=== PATIENT | female | born 1965 | race Caucasian/White ===

== ENCOUNTER 2016-12-18 16:23 | Emergency (ER) | payer SELFPAY ==
[~2016-12-18 16:23] MED LIST: ANTIVERT25 MG PO; CIPROFLOXACIN500 MG PO; FLEXERIL10 MG PO; FLONASE ALLERG9.9 ML NAS; HYDROCODONE BIT1 T11 PO; LEVOFLOXACIN500 MG PO; MOTRIN800 MG PO; PERCOCET 325 MG1 TA7 PO; PREDNICOT20 MG PO; PREDNISONE10 MG PO; ROBITUSSIN AC 110 ML PO; SYNTHROID0.125 MG PO; TRAMADOL HCL50 MG PO
[2016-12-18 16:47] LABS: BASO # 0.1 10*3/uL (0.0-0.1); BASO % 0.6 % (0.0-1.0); EOS # 0.1 10*3/uL (0.0-0.4); EOS % 0.9 % (1.0-4.0); HEMATOCRIT 45.2 % (37.0-47.0); HEMOGLOBIN 15.4 g/dl (12.0-16.0); LYMPH # 3.1 10*3/uL (1.3-4.4); MEAN CELL VOLUME 90.9 fl (81.0-99.0); MEAN CORPUSCULAR HGB CONC 34.1 g/dl (33.0-37.0); MEAN PLATELET VOLUME 10.6 fl (9.6-12.3); MONO # 0.6 10*3/uL (0.1-1.0); MONO % 6.6 % (3.0-9.0); NEUT # 5.3 10*3/uL (2.3-7.9); NEUT % 57.8 % (47.0-73.0); PLATELET COUNT AUTOMATED 168 10*3/uL (130-400); RED BLOOD COUNT 4.97 10*6/uL (4.10-5.10); RED CELL DISTRI WIDTH 12.5 % (0-14.5); WHITE BLOOD COUNT 9.2 10*3/uL (4.8-10.8)
[2016-12-18 16:56] LABS: ACT PARTIAL THROMBO TIME 25.2 SECONDS (20.8-31.5)
[2016-12-18 17:05] LABS: ALBUMIN 3.8 gm/dl (3.1-4.5); ALKALINE PHOSPHATASE 86 U/L (45-117); BUN 15 mg/dl (7-24); CHLORIDE 107 mmol/L (98-107); CREATININE 0.74 mg/dL (0.55-1.02); MAGNESIUM 2.2 mg/dL (1.5-2.1); POTASSIUM 3.5 mmol/L (3.5-5.1); SGOT/AST 14 IU/L (3-35); SGPT/ALT 15 U/L (12-78); SODIUM 143 mmol/L (136-145); TOTAL PROTEIN 7.1 gm/dL (6.4-8.2)
[2016-12-18 17:07] LABS: TROPONIN I < 0.015 ng/ml (<0.045)
[2016-12-18 17:10] LABS: FREE T4 0.8 ng/dl (0.76-1.46)
[2016-12-18 17:15] LABS: THYROID STIM HORMONE (HS) 5.44 uIU/ml (0.358-4.75)
[2016-12-18] MEDS ORDERED: ANAPROX DS550 MG PO (18:12)
[2016-12-18] MEDS ORDERED: SYNTHROID,LEV175 MCG PO (18:12)
[2016-12-18 18:21] VITALS: BP 147/81
== END 2016-12-18 18:44 | disposition home or self-care (01) ==
LOC: ED 16:23
PROVIDERS: Emergency Medicine; Physician Assistant
DX: M94.0 Chondrocostal junction syndrome [Tietze] (principal); J44.9 Chronic obstructive pulmonary disease, unspecified; I25.10 Atherosclerotic heart disease of native coronary artery without angina pectoris; F17.200 Nicotine dependence, unspecified, uncomplicated; Z88.1 Allergy status to other antibiotic agents

== ENCOUNTER 2018-03-06 09:28 | Inpatient (IN) | payer SELFPAY ==
[~2018-03-06] VITALS: Ht 160 cm; Wt 53.7 kg
--- NOTE | ~2018-03-06 | PR ---
[place], [place] PROGRESS NOTE NAME: WILLARD ARCE UNIT #: [id number] ROOM: 502 DOCTOR: GUERDA MENDOZA BIRTHDATE: [birth year] DOS: 03/08/2018 PULMONOLOGY PROGRESS NOTE SUBJECTIVE: The patient was seen and evaluated today on a general medical floor. The patient reports that her shortness of breath and cough and wheezing are improving significantly from yesterday. The patient denies any chest pain, nausea, vomiting, diarrhea, constipation or any other complaints. OBJECTIVE: VITAL SIGNS: Temperature 98, pulse of 78, respiratory rate 16, blood pressure 143/76. The patient is 98% on 2 liters nasal cannula. GENERAL: The patient is alert and oriented with no signs of distress at this time. HEENT: Head is atraumatic. No masses or lesions. NECK: Supple. CARDIOVASCULAR: Regular rate and rhythm, no murmurs. LUNGS: Mildly decreased breath sounds bilateral. ABDOMEN: Soft, nontender. Bowel sounds present. EXTREMITIES: No erythema or edema. IMPRESSION: 1. The patient has resolving acute exacerbation of chronic obstructive pulmonary disease. 2. Central lobar emphysema with predominance of the villanueva-lobular emphysema. PLAN OF TREATMENT: The patient to be discharged home on tapering prednisone and oral antibiotic and use of long-term Advair inhaler with outpatient followup with Dr. Michel to rule out other causes of her COPD. Mendozarodriguez Black DO [place], [place] PROGRESS NOTE NAME: WILLARD ARCE UNIT #: [id number] ROOM: 502 DOCTOR: GUERDA MENDOZA BIRTHDATE: [birth year] KALE MICHEL MD CM:PNTRANS [phone] MENDOZA GUERDA 03/09/18 0513 interface
--- NOTE | ~2018-03-06 | CON ---
[place], [place] REPORT OF CONSULTATION NAME: WILLARD ARCE UNIT #: [id number] ROOM: 502 DOCTOR: MENDOZA CROFT DO BIRTHDATE: [birth year] DOS: 03/07/2018 PULMONOLOGY CONSULTATION REPORT Consultation is for the hospitalist service. REASON FOR CONSULTATION: Acute exacerbation of chronic obstructive pulmonary disease. HISTORY OF PRESENT ILLNESS: The patient is a 52-year-old female who presented to the ER with complaints of shortness of breath for about 4 days. She reports cough which was productive of a thick white sputum. She notes that her shortness of breath is at rest and with exertional activity making it worse. She denies any chest pain, back pain, nausea, vomiting, diarrhea, or constipation. In the ER, she was noted to be tachypneic with a respiratory rate of 22 and slightly hypoxic with oxygen saturation of 90% on room air and was placed on 4 liters nasal cannula, which caused an improvement in her sats to 96%. She was provided with DuoNeb treatments, IV Solu-Medrol and IV antibiotics and admitted to the floor for further care. PAST MEDICAL HISTORY: Benign paroxysmal positional vertigo, hypothyroidism. PAST SURGICAL HISTORY: History of hysterectomy, appendectomy, cholecystectomy. SOCIAL HISTORY: Does not drink or use illicit drugs, but does smoke around 1 pack per day. FAMILY HISTORY: Father from an IN at age 47. Mother from unknown causes at age 68. ALLERGIES: AZITHROMYCIN. CURRENT MEDICATIONS: Synthroid 175 mcg p.o. daily. REVIEW OF SYSTEMS: GENERAL: The patient reports chills. Denies fevers, weight loss, weight gain. HEENT: Denies vision changes, hearing loss, ear discharge, ear pain, or trouble swallowing. CARDIOVASCULAR: Denies chest pain, palpitations, lower extremity edema or diaphoresis. RESPIRATORY: Reports shortness of breath, cough, wheezing, dyspnea on exertion and sputum production. Denies any hemoptysis or stridor. ABDOMINAL: Reports nausea, vomiting. Denies abdominal pain, diarrhea, constipation, blood or any blood in the stool. GENITOURINARY: Denies any dysuria, hematuria or changes in frequency, urgency. NEUROLOGICAL: Denies lightheadedness, dizziness or confusion. PSYCHIATRIC: Denies depression, anxiety. ENDOCRINE: Denies any heat or cold intolerance. SKIN: Denies any new skin rashes or lesions. [place], [place] REPORT OF CONSULTATION NAME: WILLARD ARCE UNIT #: [id number] ROOM: 502 DOCTOR: MENDOZA CROFT DO BIRTHDATE: [birth year] PHYSICAL EXAMINATION: VITAL SIGNS: Temperature of 97.8, pulse of 106, respiratory rate 20, blood pressure 138/75, pulse ox 98% on 3 liters nasal cannula. GENERAL: Alert, awake, ill-appearing female in mild distress. HEAD: Normocephalic, atraumatic. EYES: PERRLA. SKIN: No lesions, no ulcerations. ENT: No lesions, scars, masses. NECK: Supple, without masses or lesions. HEART: Tachycardia. No gallops, murmurs or rubs. LUNGS: Cough, mild respiratory distress with diminished breath sounds, rhonchi and wheezing bilaterally. ABDOMEN: Soft. Bowel sounds present, nontender. EXTREMITIES: No clubbing, cyanosis, erythema. NEUROLOGIC: Grossly intact without focal neurological deficits. PSYCHIATRIC: Normal mood and affect. SKIN: Warm and dry. No ulcerations or rashes. LABORATORY DATA: CBC showed white blood cell count of 11.9, hemoglobin 14.4, hematocrit of 43.8 and platelets of 153. Coagulation panel within normal limits. BMP revealed hyperglycemia, mildly at 158 and no other acute abnormalities. DIAGNOSTIC IMAGING: Chest x-ray in the ER showed normal AP chest without changes. CT of the chest without contrast showed severe central lobar emphysema without any acute disease. ASSESSMENT: 1. Acute exacerbation of chronic obstructive pulmonary disease. 2. Pneumonitis. 3. Acute respiratory failure with hypoxia. 4. Tobacco abuse. 5. Hypothyroidism. TREATMENT PLAN: The patient will be continued on Solu-Medrol 40 mg q.12h. with DuoNeb every 4 hours as needed for shortness of breath and Levaquin will be provided 500 mg daily. We will continue to monitor the patient and monitor clinical process. Smoking cessation provided to the patient and she was counseled on the risk of continued smoking. Nicotine replacement will be provided as needed for nicotine withdrawals. General medical care per the primary service. Mendoza Croft DO [place], [place] REPORT OF CONSULTATION NAME: WILLARD ARCE UNIT #: [id number] ROOM: 502 DOCTOR: MENDOZA CROFT DO BIRTHDATE: [birth year] KALE MICHEL MD CM:CONSTR:REPORT OF CONSULTATION 1251 03/08/18 0527 interface
--- NOTE | ~2018-03-06 | PR ---
[place], [place] PROGRESS NOTE NAME: WILLARD ARCE UNIT #: [id number] ROOM: 502 DOCTOR: KALE BROWER MD BIRTHDATE: [birth year] DOS: 03/08/2018 PULMONARY PROGRESS NOTE SUBJECTIVE: The patient was independently seen and examined in gzzn-dv-lqpo encounter. History was confirmed. Physical examination was performed. Labs reviewed. Assessment and management of the patient today's note was personally completed. The note done by the medical biller coder was approved. The patient has been noted comfortable at this time, resting on the bed without any acute distress. She has been noted continued improvement of the respiratory symptoms. Shortness of breath and wheezing still noted with a moderate nonproductive cough. OBJECTIVE: VITAL SIGNS: Vital signs of the patient, which has been recorded showed normal temperature, respiratory rate of 16, heart rate of 103, and blood pressure of 143/76. HEENT: On examination, no acute change. NECK: Supple. CARDIOVASCULAR SYSTEM: S1, S2 is audible. LUNGS: The patient was noted without any crackles or wheezing. Breaths are noted mildly decreased bilaterally. ABDOMEN: Soft, nontender. Bowel sounds present. EXTREMITIES: No edema. IMPRESSION: 1. The patient with resolving acute exacerbation of chronic obstructive pulmonary disease, acute tracheobronchitis. 2. Centrilobular emphysema partially with predominance of the panlobular emphysema, rule out alpha-1 antitrypsin deficiency. PLAN OF TREATMENT: The patient could be discharged home on tapering prednisone, oral antibiotic, and use of the Advair. The prescription for the Advair is short-acting bronchodilator. Absolute abstinence tobacco use was advised. Outpatient assessment to rule out alpha-1 antitrypsin deficiency, an appointment to be established in office post-discharge [place], [place] PROGRESS NOTE NAME: WILLARD ARCE UNIT #: [id number] ROOM: 502 DOCTOR: KALE BROWER MD BIRTHDATE: [birth year] KALE MICHEL MD CM:PNTRANS [phone] KALE BAUGH MD 03/08/18 0808 interface
--- NOTE | ~2018-03-06 | CON ---
[place], [place] REPORT OF CONSULTATION NAME: WILLARD ARCE UNIT #: [id number] ROOM: 502 DOCTOR: MARILU BAUGH MDKALE BIRTHDATE: [birth year] DOS: 03/07/2018 PULMONARY CONSULTATION, EVALUATION AND MANAGEMENT CONSULTATION REQUESTED BY: Hospitalist Services. REASON FOR CONSULTATION: For assessment of acute exacerbation of COPD. The patient was independently seen and examined with xlad-zo-enln encounter. History was confirmed. Physical examination was performed. Labs were reviewed. Imaging studies were reviewed. Assessment and management of today's note were personally completed. HISTORY OF PRESENT ILLNESS: This is a 52-year-old female patient who has been getting acute respiratory symptoms, which started after upper airway respiratory symptoms with nasal congestion and drainage. The patient came into the hospital as the patient's symptoms got worse, especially the shortness of breath. She denies symptoms of fever or chills. Denies symptoms of chest pain or hemoptysis. Cough has been noted moderate to severe, which is nonproductive, with tightness in the chest. Remaining system review was done by the medical housekeeper and was approved. PAST MEDICAL HISTORY: Reported as history of hypothyroidism. PAST SURGICAL HISTORY: Reported as: 1. Hysterectomy. 2. Appendectomy. 3. Cholecystectomy. SOCIAL HISTORY: She is , has 2 children, and lives at home. Noted with tobacco use at earlier age, a pack of cigarettes per day, which was actively done until hospitalization. FAMILY HISTORY: Father at the age of 4747 years old with myocardial infarction. Mother at the age of 6868 years old, unknown medical illnesses. MEDICATIONS: From home were listed as use of Synthroid 175 mcg daily. DRUG ALLERGIES: ZITHROMAX. PHYSICAL EXAMINATION: GENERAL: The patient is a 52-year-old female who has been currently noted to be awake and alert, without any acute distress this morning of assessment. Height and weight were recorded by the nursing staff, with a height of 5 feet 3 inches and weight of 160 pounds, BMI 20.9. VITAL SIGNS: Normal temperature since admission, respiratory rate 16-20, heart rate of 93-88, blood pressure 116/60 to 138/78. Pulse oxygen saturation recorded as 93% on 3 liters nasal cannula; at rest on room air, on admission, 90% saturation of oxygen noted. HEENT: Head is atraumatic. Eyes nonicterus. [place], [place] REPORT OF CONSULTATION NAME: WILLARD ARCE UNIT #: [id number] ROOM: 502 DOCTOR: MARILU BAUGH MD,KALE BIRTHDATE: [birth year] NECK: Supple. CARDIOVASCULAR: S1, S2 audible. LUNGS: Noted without any crackles. Breaths are noted mildly decreased with pkwmbdqx-vi-uyzbwz diffuse expiratory wheezing. ABDOMEN: Flat, soft, nontender. Bowel sounds present. EXTREMITIES: Without any acute edema. MUSCULOSKELETAL: Without any acute deformities. CENTRAL NERVOUS SYSTEM: Cranial nerves 2 through 12 intact. LABORATORY DATA: CBC that was done on 03/06/2018: WBC count normal, hemoglobin 16.5, hematocrit 50.3, platelet count was normal. PT and PTT were noted normal from yesterday as well. Lactic acid from yesterday was 1.8, normal. CMP from yesterday: Glucose 138, BUN and creatinine were normal. CBC that was done this morning: WBC count 11.9, otherwise normal CBC. CMP this morning: Glucose 158, BUN normal, creatinine is normal. The chest x-ray 1 view which was done on 03/06/2018 with PACS images noted hyperinflation of the lungs, without any acute abnormalities. CT scan of the chest that was completed this morning was reviewed as well, was noted with changes of panlobular emphysema diffusely in the lungs with some changes of centrilobular emphysema as well. IMPRESSION: The patient who has been currently admitted to the hospital is noted with: 1. Acute exacerbation of chronic obstructive pulmonary disease after upper respiratory tract infection. She is still noted with severe wheezing. 2. Panlobular emphysema with centrilobular emphysema also noted on current CT scan of the chest. There is no evidence of acute pneumonia or pulmonary nodule. 3. Longstanding tobacco use. 4. Rule out alpha-1 antitrypsin deficiency as well as an outpatient. This is to be done because of the centrilobular emphysema and earlier onset of chronic obstructive pulmonary disease. PLAN OF MANAGEMENT: The patient will be continued with bronchodilators and antibiotics as well as current dose of Solu-Medrol 40 mg b.i.d. Monitor respiratory status closely. Nicotine replacement patches that have been already started will be continued. Obtain sputum for Gram stain and culture as well. Additional treatment changes will be done based on the progression of illness and any other new information data, including the culture results. Thank you for allowing me to participate in the care of this patient. [place], [place] REPORT OF CONSULTATION NAME: WILLARD ARCE UNIT #: [id number] ROOM: [facility] DOCTOR: KALE BROWER MD BIRTHDATE: [birth year] KALE MICHEL MD CM:CONSTR:REPORT OF CONSULTATION 1201 03/07/18 1319 interface
--- NOTE | ~2018-03-06 | EKG ---
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
[~2018-03-06 09:28] MED LIST changes: +ANAPROX DS550 MG PO; +GOOD NEIGHBOR M25 M1 PO; +SYNTHROID,LEV175 MCG PO
[2018-03-06 09:29] VITALS: BP 138/85
[2018-03-06 09:44] LABS: BASO % 0.3 % (0.0-1.0); EOS # 0.1 10*3/uL (0.0-0.4); EOS % 0.8 % (1.0-4.0); HEMATOCRIT 50.3 % (37.0-47.0); HEMOGLOBIN 16.6 g/dl (12.0-16.0); LYMPH # 1.7 10*3/uL (1.3-4.4); LYMPH % 17.6 % (27.0-41.0); MEAN CELL VOLUME 92.8 fl (81.0-99.0); MEAN CORPUSCULAR HGB 30.6 pg (27.0-31.0); MEAN PLATELET VOLUME 10.3 fl (9.6-12.3); MONO # 0.6 10*3/uL (0.1-1.0); MONO % 6.6 % (3.0-9.0); NEUT # 7.2 10*3/uL (2.3-7.9); NEUT % 74.4 % (47.0-73.0); PLATELET COUNT AUTOMATED 137 10*3/uL (130-400); RED BLOOD COUNT 5.42 10*6/uL (4.10-5.10); RED CELL DISTRI WIDTH 12.4 % (0-14.5); WHITE BLOOD COUNT 9.7 10*3/uL (4.8-10.8)
[2018-03-06 09:55] LABS: ACT PARTIAL THROMBO TIME 24.4 SECONDS (20.8-31.5); INTERNATIONAL NORM RATIO 0.9 (2.0-3.5)
[2018-03-06 10:00] LABS: ALBUMIN 3.8 gm/dl (3.1-4.5); ALKALINE PHOSPHATASE 95 U/L (45-117); BUN 21 mg/dl (7-24); CHLORIDE 111 mmol/L (98-107); CREATININE 0.72 mg/dL (0.55-1.02); POTASSIUM 3.5 mmol/L (3.5-5.1); SGOT/AST 25 IU/L (3-35); SGPT/ALT 38 U/L (12-78); SODIUM 144 mmol/L (136-145); TOTAL PROTEIN 7.7 gm/dL (6.4-8.2)
[2018-03-06 10:02] LABS: TROPONIN I < 0.015 ng/ml (<0.045)
[2018-03-06 10:10] VITALS: BP 130/78
[2018-03-06 10:30] LABS: BILIRUBIN NEGATIVE (NEGATIVE); BLOOD 2+ (NEGATIVE); CLARITY SL CLOUDY (CLEAR); COLOR YELLOW (YELLOW); GLUCOSE TRACE (NEGATIVE); KETONE NEGATIVE (NEGATIVE); LEUKO ESTERASE NEGATIVE (NEGATIVE); NITRITE NEGATIVE (NEGATIVE); PH 5.5 (5.0-9.0); SPECIFIC GRAVITY >= 1.030 (1.005-1.030); UROBILINOGEN 0.2 E.U./dl (0.2-1.0)
[2018-03-06 10:44] LABS: BACTERIA 2+; MUCOUS 2+
[2018-03-06 11:47] VITALS: BP 153/78
[2018-03-06 12:00] VITALS: BP 153/78
[2018-03-06 16:00] VITALS: BP 132/66
[2018-03-06 20:00] VITALS: BP 124/65
[2018-03-07] VITALS: BP 116/62
[2018-03-07 06:33] LABS: BASO % 0.1 % (0.0-1.0); LYMPH # 1.1 10*3/uL (1.3-4.4); LYMPH % 9.3 % (27.0-41.0); MEAN CELL VOLUME 93.6 fl (81.0-99.0); MEAN CORPUSCULAR HGB 30.8 pg (27.0-31.0); MEAN CORPUSCULAR HGB CONC 32.9 g/dl (33.0-37.0); MEAN PLATELET VOLUME 10.9 fl (9.6-12.3); MONO # 0.4 10*3/uL (0.1-1.0); MONO % 3.5 % (3.0-9.0); NEUT # 10.3 10*3/uL (2.3-7.9); NEUT % 86.8 % (47.0-73.0); PLATELET COUNT AUTOMATED 153 10*3/uL (130-400); RED BLOOD COUNT 4.68 10*6/uL (4.10-5.10); RED CELL DISTRI WIDTH 12.5 % (0-14.5); WHITE BLOOD COUNT 11.9 10*3/uL (4.8-10.8)
[2018-03-07 06:39] LABS: HEMATOCRIT 43.8 % (37.0-47.0); HEMOGLOBIN 14.4 g/dl (12.0-16.0)
[2018-03-07 06:50] LABS: ALBUMIN 3.3 gm/dl (3.1-4.5); ALKALINE PHOSPHATASE 81 U/L (45-117); BUN 19 mg/dl (7-24); CHLORIDE 108 mmol/L (98-107); CHOLESTEROL 139 mg/dL (<200); CREATININE 0.69 mg/dL (0.55-1.02); FREE T4 1.23 ng/dl (0.76-1.46); HDL CHOLESTEROL 44 mg/dl (40-60); LDL CHOLESTEROL 71 mg/dL (9-159); PHOSPHOROUS 3.6 mg/dL (2.5-4.9); POTASSIUM 3.9 mmol/L (3.5-5.1); SGOT/AST 16 IU/L (3-35); SGPT/ALT 29 U/L (12-78); SODIUM 144 mmol/L (136-145); TOTAL PROTEIN 6.9 gm/dL (6.4-8.2); TRIGLYCERIDES 119 mg/dl (<150); VLDL CHOLESTEROL 24 mg/dL (6-40)
[2018-03-07 07:38] LABS: THYROID STIM HORMONE (HS) 0.032 uIU/ml (0.358-4.75)
[2018-03-07 07:59] LABS: VITAMIN D, 25-HYDROXY 25.8 ng/mL (30-100)
[2018-03-07 08:00] VITALS: BP 138/78
[2018-03-07 12:00] VITALS: BP 138/75
[2018-03-07 16:00] VITALS: BP 136/61
[2018-03-07 20:00] VITALS: BP 133/59
[2018-03-08] VITALS: BP 143/76
[2018-03-08 08:00] VITALS: BP 132/76; BP 138/68
[2018-03-08] MEDS ORDERED: PREDNISONE10 MG PO (09:10)
[2018-03-08] MEDS ORDERED: LEVAQUIN500 M2 PO (09:10)
[2018-03-08] MEDS ORDERED: ADVAIR 250/501 EA INH (09:10)
[2018-03-08] MEDS ORDERED: PROAIR HFA8.5 GM INH (09:10)
[2018-03-08] MEDS ORDERED: MUCINEX1200 M1 PO (10:47)
== END 2018-03-08 12:20 | disposition home or self-care (01) | DRG 871 ==
LOC: ED 09:28 → EDHOLD 10:42 → 5E 10:42
PROVIDERS: Emergency Medicine; Registered Nurse
DX: A41.9 Sepsis, unspecified organism (principal); J96.01 Acute respiratory failure with hypoxia; J18.9 Pneumonia, unspecified organism; J44.0 Chronic obstructive pulmonary disease with (acute) lower respiratory infection; D75.1 Secondary polycythemia; E87.8 Other disorders of electrolyte and fluid balance, not elsewhere classified; F17.210 Nicotine dependence, cigarettes, uncomplicated; J43.1 Panlobular emphysema; J20.9 Acute bronchitis, unspecified; R73.9 Hyperglycemia, unspecified; E03.9 Hypothyroidism, unspecified; J43.2 Centrilobular emphysema; Z88.1 Allergy status to other antibiotic agents; Z90.49 Acquired absence of other specified parts of digestive tract; Z90.710 Acquired absence of both cervix and uterus; Z98.891 History of uterine scar from previous surgery; Z82.49 Family history of ischemic heart disease and other diseases of the circulatory system; Z79.899 Other long term (current) drug therapy; Z71.6 Tobacco abuse counseling

== ENCOUNTER 2018-12-13 09:14 | Emergency (ER) | payer BC, MEDICARE ==
[~2018-12-13] VITALS: Ht 160 cm; Wt 61.2 kg
--- NOTE | ~2018-12-13 | EKG ---
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
[~2018-12-13 09:14] MED LIST changes: +ADVAIR 250/501 EA INH; +LEVAQUIN500 M2 PO; +MUCINEX1200 M1 PO; +PROAIR HFA8.5 GM INH
[2018-12-13 09:36] LABS: BASO # 0.1 10*3/uL (0.0-0.1); BASO % 1.1 % (0.0-1.0); EOS # 0.1 10*3/uL (0.0-0.4); EOS % 2.1 % (1.0-4.0); HEMATOCRIT 44.9 % (37.0-47.0); HEMOGLOBIN 14.9 g/dl (12.0-16.0); LYMPH # 2.1 10*3/uL (1.3-4.4); LYMPH % 32.1 % (27.0-41.0); MEAN CELL VOLUME 91.4 fl (81.0-99.0); MEAN CORPUSCULAR HGB 30.3 pg (27.0-31.0); MEAN CORPUSCULAR HGB CONC 33.2 g/dl (33.0-37.0); MEAN PLATELET VOLUME 9.9 fl (9.6-12.3); MONO # 0.6 10*3/uL (0.1-1.0); MONO % 8.7 % (3.0-9.0); NEUT # 3.7 10*3/uL (2.3-7.9); NEUT % 55.8 % (47.0-73.0); PLATELET COUNT AUTOMATED 163 10*3/uL (130-400); RED BLOOD COUNT 4.91 10*6/uL (4.10-5.10); RED CELL DISTRI WIDTH 11.9 % (0-14.5); WHITE BLOOD COUNT 6.6 10*3/uL (4.8-10.8)
[2018-12-13 09:47] LABS: ACT PARTIAL THROMBO TIME 25.2 SECONDS (20.0-32.1); INTERNATIONAL NORM RATIO 0.9 (2.0-3.5)
[2018-12-13 09:52] LABS: ALBUMIN 3.6 gm/dl (3.1-4.5); ALKALINE PHOSPHATASE 88 U/L (45-117); BUN 13 mg/dl (7-24); CHLORIDE 108 mmol/L (98-107); POTASSIUM 3.8 mmol/L (3.5-5.1); SGOT/AST 13 IU/L (3-35); SGPT/ALT 22 U/L (12-78); SODIUM 141 mmol/L (136-145)
[2018-12-13 09:53] LABS: TROPONIN I < 0.015 ng/ml (<0.045)
[2018-12-13 11:16] VITALS: BP 141/72
[2018-12-13] MEDS ORDERED: MECLIZINE HCL25 M2 PO (11:38)
[2018-12-13] MEDS ORDERED: PREDNISONE10 MG PO (11:38)
== END 2018-12-13 11:44 | disposition home or self-care (01) ==
LOC: ED 09:14
PROVIDERS: Internal Medicine
DX: R42 Dizziness and giddiness (principal); R11.2 Nausea with vomiting, unspecified; J44.9 Chronic obstructive pulmonary disease, unspecified; E03.9 Hypothyroidism, unspecified; Z87.891 Personal history of nicotine dependence; Z88.1 Allergy status to other antibiotic agents; Z88.6 Allergy status to analgesic agent; Z79.899 Other long term (current) drug therapy; Z90.710 Acquired absence of both cervix and uterus; Z90.49 Acquired absence of other specified parts of digestive tract

== ENCOUNTER 2019-09-23 14:56 | Emergency (ER) | payer BC ==
[~2019-09-23] VITALS: Ht 160 cm; Wt 60.8 kg
[~2019-09-23 14:56] MED LIST changes: +MECLIZINE HCL25 M2 PO
[2019-09-23 15:06] VITALS: BP 151/80
[2019-09-23] MEDS ORDERED: CYCLOBENZAPRINE5 M3 PO (18:01)
[2019-09-23] MEDS ORDERED: MEDROL DOSEPAK4 MG PO (18:01)
== END 2019-09-23 18:15 | disposition home or self-care (01) ==
LOC: ED 14:56
DX: S46.911A Strain of unspecified muscle, fascia and tendon at shoulder and upper arm level, right arm, initial encounter (principal); M54.12 Radiculopathy, cervical region; Z88.1 Allergy status to other antibiotic agents; Z88.6 Allergy status to analgesic agent; Z88.8 Allergy status to other drugs, medicaments and biological substances; Z72.0 Tobacco use; X58.XXXA Exposure to other specified factors, initial encounter; Y93.89 Activity, other specified; Y92.89 Other specified places as the place of occurrence of the external cause; Y99.8 Other external cause status

== ENCOUNTER 2021-05-06 01:33 | Emergency (ER) | payer SELFPAY ==
[~2021-05-06 01:33] MED LIST changes: +CYCLOBENZAPRINE5 M3 PO; +MEDROL DOSEPAK4 MG PO
[2021-05-06 02:33] VITALS: BP 161/95
[2021-05-06] MEDS ORDERED: ZYRTEC10 M3 PO (02:36)
== END 2021-05-06 03:31 | disposition home or self-care (01) ==
LOC: ED 01:33
DX: L50.9 Urticaria, unspecified (principal); T50.995A Adverse effect of other drugs, medicaments and biological substances, initial encounter; Y92.89 Other specified places as the place of occurrence of the external cause

== ENCOUNTER 2021-12-12 09:55 | Emergency (ER) | payer SELFPAY ==
[~2021-12-12] VITALS: Ht 160 cm; Wt 54.4 kg
[~2021-12-12 09:55] MED LIST changes: +ZYRTEC10 M3 PO
[2021-12-12 10:20] VITALS: BP 158/71
[2021-12-12] MEDS ORDERED: NAPROSYN500 MG PO (12:56)
== END 2021-12-12 13:11 | disposition home or self-care (01) ==
LOC: ED 09:55
DX: M54.16 Radiculopathy, lumbar region (principal); F17.200 Nicotine dependence, unspecified, uncomplicated; Z88.1 Allergy status to other antibiotic agents; Z88.6 Allergy status to analgesic agent; Z88.8 Allergy status to other drugs, medicaments and biological substances; Z90.710 Acquired absence of both cervix and uterus; Z90.49 Acquired absence of other specified parts of digestive tract; Z98.890 Other specified postprocedural states

== ENCOUNTER → 2022-07-20 | Outpatient (CLI) | payer SELFPAY ==
[~2022-07-20] MED LIST changes: +NAPROSYN500 MG PO
[2022-07-20 14:19] LABS: BASO % 0.1 % (0.0-1.0); EOS % 0.2 % (1.0-4.0); HEMATOCRIT 46.4 % (37.0-47.0); LYMPH # 1.9 10*3/uL (1.3-4.4); LYMPH % 22.3 % (27.0-41.0); MEAN CELL VOLUME 92.4 fl (81.0-99.0); MEAN CORPUSCULAR HGB 30.5 pg (27.0-31.0); MEAN PLATELET VOLUME 9.8 fl (9.6-12.3); MONO # 0.6 10*3/uL (0.1-1.0); MONO % 6.8 % (3.0-9.0); NEUT # 5.9 10*3/uL (2.3-7.9); NEUT % 70.2 % (47.0-73.0); PLATELET COUNT AUTOMATED 200 10*3/uL (130-400); RED BLOOD COUNT 5.02 10*6/uL (4.10-5.10); RED CELL DISTRI WIDTH 12.2 % (0-14.5); WHITE BLOOD COUNT 8.4 10*3/uL (4.8-10.8)
[2022-07-20 14:56] LABS: ALKALINE PHOSPHATASE 79 U/L (46-116); BUN 11 mg/dl (9-23); CHLORIDE 104 mmol/L (98-107); CHOLESTEROL 201 mg/dL (<200); LDL CHOLESTEROL 111 mg/dL (9-159); POTASSIUM 3.6 mmol/L (3.4-5.1); SGPT/ALT 21 U/L (10-49); TOTAL PROTEIN 7.3 gm/dL (6.0-8.0); TRIGLYCERIDES 218 mg/dl (<150)
== END | disposition home or self-care (01) ==
LOC: RESCLI 12:39
PROVIDERS: Internal Medicine; ATTEND Internal Medicine
DX: J44.9 Chronic obstructive pulmonary disease, unspecified (principal); E03.8 Other specified hypothyroidism; F41.1 Generalized anxiety disorder; E78.5 Hyperlipidemia, unspecified; R53.83 Other fatigue; Z88.1 Allergy status to other antibiotic agents; Z88.8 Allergy status to other drugs, medicaments and biological substances; Z87.891 Personal history of nicotine dependence; Z98.890 Other specified postprocedural states; Z79.899 Other long term (current) drug therapy

== ENCOUNTER 2023-04-30 13:59 | Emergency (ER) | payer OTHER ==
[~2023-04-30] VITALS: Ht 160 cm; Wt 59.0 kg
[2023-04-30] MEDS ORDERED: LEXAPRO5 M1 PO (17:24)
[2023-04-30] MEDS ORDERED: LEVOXYL112 MCG PO (17:24)
[2023-04-30] MEDS ORDERED: CARTIA XT120 MG PO (17:25)
[2023-04-30 17:28] VITALS: BP 157/77
[2023-04-30 17:30] LABS: BASO % 0.1 % (0.0-1.0); HEMATOCRIT 48.1 % (37.0-47.0); LYMPH % 27.1 % (27.0-41.0); MEAN CELL VOLUME 91.4 fl (81.0-99.0); MEAN CORPUSCULAR HGB 29.7 pg (27.0-31.0); MEAN CORPUSCULAR HGB CONC 32.4 g/dl (33.0-37.0); MEAN PLATELET VOLUME 9.5 fl (9.6-12.3); MONO # 0.5 10*3/uL (0.1-1.0); MONO % 6.4 % (3.0-9.0); NEUT % 66.3 % (47.0-73.0); PLATELET COUNT AUTOMATED 200 10*3/uL (130-400); RED BLOOD COUNT 5.26 10*6/uL (4.10-5.10); RED CELL DISTRI WIDTH 12.4 % (0-14.5); WHITE BLOOD COUNT 7.5 10*3/uL (4.8-10.8)
[2023-04-30 17:43] LABS: ACT PARTIAL THROMBO TIME 26.3 SECONDS (20.0-32.1)
[2023-04-30 17:52] LABS: ALKALINE PHOSPHATASE 76 U/L (46-116); BUN 12 mg/dl (9-23); CHLORIDE 106 mmol/L (98-107); SGPT/ALT 18 U/L (5-49); TOTAL PROTEIN 7.2 gm/dL (6.0-8.0)
== END 2023-04-30 19:59 | disposition home or self-care (01) ==
LOC: ED 13:59
PROVIDERS: Physician Assistant Medical
DX: I10 Essential (primary) hypertension (principal); R10.2 Pelvic and perineal pain; Z88.1 Allergy status to other antibiotic agents; Z88.8 Allergy status to other drugs, medicaments and biological substances; Z88.5 Allergy status to narcotic agent; Z90.710 Acquired absence of both cervix and uterus; Z90.49 Acquired absence of other specified parts of digestive tract; Z98.890 Other specified postprocedural states; Z72.0 Tobacco use

== ENCOUNTER → 2023-05-07 | Outpatient (CLI) | payer OTHER ==
[~2023-05-07] MED LIST changes: +CARTIA XT120 MG PO; +LEVOXYL112 MCG PO; +LEXAPRO5 M1 PO
== END | disposition home or self-care (01) ==
LOC: RAD 11:40
PROVIDERS: ATTEND Nurse Practitioner Primary Care
DX: M50.823 Other cervical disc disorders at C6-C7 level (principal); M48.02 Spinal stenosis, cervical region

== ENCOUNTER → 2023-06-14 | Outpatient (CLI) | payer OTHER ==
[2023-06-14 10:44] LABS: HEMATOCRIT 46.1 % (37.0-47.0); LYMPH # 1.5 10*3/uL (1.3-4.4); LYMPH % 22.8 % (27.0-41.0); MEAN CELL VOLUME 94.1 fl (81.0-99.0); MEAN CORPUSCULAR HGB CONC 31.9 g/dl (33.0-37.0); MEAN PLATELET VOLUME 9.8 fl (9.6-12.3); MONO # 0.5 10*3/uL (0.1-1.0); MONO % 8.2 % (3.0-9.0); NEUT # 4.5 10*3/uL (2.3-7.9); NEUT % 68.8 % (47.0-73.0); PLATELET COUNT AUTOMATED 212 10*3/uL (130-400); RED CELL DISTRI WIDTH 12.5 % (0-14.5); WHITE BLOOD COUNT 6.6 10*3/uL (4.8-10.8)
[2023-06-14 10:57] LABS: ACT PARTIAL THROMBO TIME 25.4 SECONDS (20.0-32.1)
[2023-06-14 11:27] LABS: BUN 11 mg/dl (9-23); CHLORIDE 107 mmol/L (98-107); POTASSIUM 3.8 mmol/L (3.4-5.1)
== END | disposition home or self-care (01) ==
LOC: LAB 10:28
PROVIDERS: ATTEND Internal Medicine
DX: I20.89 Other forms of angina pectoris (principal); R06.09 Other forms of dyspnea; R10.9 Unspecified abdominal pain

== ENCOUNTER → 2023-06-18 | Outpatient (CLI) | payer OTHER | END | disposition home or self-care (01) | LOC: MAMMO 13:21 | PROVIDERS: ATTEND Nurse Practitioner Primary Care | DX: Z12.31 Encounter for screening mammogram for malignant neoplasm of breast (principal); R92.30 Dense breasts, unspecified ==

== ENCOUNTER → 2023-07-17 | Outpatient (CLI) | payer OTHER | END | disposition home or self-care (01) | LOC: MAMMO 01:30 | PROVIDERS: ATTEND Nurse Practitioner Primary Care | DX: N60.02 Solitary cyst of left breast (principal); R92.8 Other abnormal and inconclusive findings on diagnostic imaging of breast; R92.322 Mammographic fibroglandular density, left breast ==

== ENCOUNTER → 2023-08-29 | Outpatient (CLI) | payer OTHER ==
[2023-08-29 15:51] LABS: FREE T4 1.45 ng/dl (0.89-1.76)
== END | disposition home or self-care (01) ==
LOC: LAB 13:52
PROVIDERS: ATTEND Nurse Practitioner Primary Care
DX: E06.3 Autoimmune thyroiditis (principal)

== ENCOUNTER 2024-06-17 22:13 | Emergency (ER) | payer MEDICARE ==
[~2024-06-17] VITALS: Ht 160 cm; Wt 64.4 kg
[2024-06-17 22:33] VITALS: BP 140/73
[2024-06-17] MEDS ORDERED: ASPIRIN ADULT L81 M1 PO (22:34)
[2024-06-17] MEDS ORDERED: LOSARTAN POTASS25 M1 PO (22:34)
[2024-06-17] MEDS ORDERED: methylPREDNISolone sod succ 125 MG VIAL IV ONE (22:55)
[2024-06-17 23:23] LABS: HEMATOCRIT 42.7 % (37.0-47.0); MEAN CORPUSCULAR HGB 29.9 pg (27.0-31.0); MEAN CORPUSCULAR HGB CONC 32.8 g/dl (33.0-37.0); MEAN PLATELET VOLUME 10.3 fl (9.6-12.3); MONO # 0.4 10*3/uL (0.1-1.0); MONO % 13.2 % (3.0-9.0); NEUT # 1.9 10*3/uL (2.3-7.9); NEUT % 58.2 % (47.0-73.0); PLATELET COUNT AUTOMATED 146 10*3/uL (130-400); RED BLOOD COUNT 4.69 10*6/uL (4.10-5.10); RED CELL DISTRI WIDTH 12.3 % (0-14.5); WHITE BLOOD COUNT 3.2 10*3/uL (4.8-10.8)
[2024-06-17 23:42] LABS: BUN 15 mg/dl (9-23); CHLORIDE 102 mmol/L (98-107); POTASSIUM 3.4 mmol/L (3.4-5.1)
[2024-06-18] MEDS ORDERED: AMOX-CLAV 875-1 EACH PO (01:53)
[2024-06-18] MEDS ORDERED: BENZONATATE100 M1 PO (01:53)
[2024-06-18] MEDS ORDERED: MEDROL DOSEPAK4 MG PO (01:53)
[2024-06-18] MEDS ORDERED: BENZONATATE 100 MG CAP PO ONE (01:55)
== END 2024-06-18 02:14 | disposition home or self-care (01) ==
LOC: ED 22:13
PROVIDERS: Internal Medicine
DX: J10.1 Influenza due to other identified influenza virus with other respiratory manifestations (principal); Z20.822 Contact with and (suspected) exposure to COVID-19; J44.1 Chronic obstructive pulmonary disease with (acute) exacerbation; F17.200 Nicotine dependence, unspecified, uncomplicated; Z88.1 Allergy status to other antibiotic agents; Z88.5 Allergy status to narcotic agent; Z88.8 Allergy status to other drugs, medicaments and biological substances; Z90.710 Acquired absence of both cervix and uterus; Z90.49 Acquired absence of other specified parts of digestive tract; Z98.890 Other specified postprocedural states

== ENCOUNTER → 2024-09-17 | Outpatient (CLI) | payer MEDICARE ==
[~2024-09-17] MED LIST changes: +AMOX-CLAV 875-1 EACH PO; +ASPIRIN ADULT L81 M1 PO; +ATORVASTATIN CA10 M1 PO; +BENZONATATE100 M1 PO; +DOXYCYCLINE HY100 M3 PO; +HYDROCHLOROTH12.5 M2 PO; +LOSARTAN POTASS25 M1 PO; +MUCUS RELIEF E600 MG PO
[2024-09-17 12:09] LABS: BUN 14 mg/dl (9-23); CHLORIDE 105 mmol/L (98-107)
== END | disposition home or self-care (01) ==
LOC: LAB 11:08
PROVIDERS: ATTEND Nurse Practitioner Primary Care
DX: I10 Essential (primary) hypertension (principal)

== ENCOUNTER 2025-03-15 18:57 | Emergency (ER) | payer MEDICARE ==
[2025-03-15 19:16] VITALS: BP 145/72
[2025-03-15 19:29] LABS: BILIRUBIN Negative (Negative); BLOOD Negative (Negative); CLARITY Clear (Clear); COLOR Yellow (Yellow); KETONE Negative (Negative); LEUKO ESTERASE Negative (Negative); NITRITE Negative (Negative); PH 6.0 (4.5-8.0); SPECIFIC GRAVITY <= 1.005 (1.001-1.030); UROBILINOGEN 0.2 E.U./dl (0.0-1.0)
[2025-03-15 19:48] LABS: EPITHELIAL CELLS 0-2; WBC 0-2 wbc/hpf (0-5)
[2025-03-15] MEDS ORDERED: METHOCARBAMOL 500 MG TAB PO ONE (20:00)
[2025-03-15] MEDS ORDERED: NAPROXEN250 MG PO (20:03)
[2025-03-15] MEDS ORDERED: METHOCARBAMOL500 M1 PO (20:03)
== END 2025-03-15 20:10 | disposition home or self-care (01) ==
LOC: ED 18:57
PROVIDERS: Internal Medicine
DX: S39.012A Strain of muscle, fascia and tendon of lower back, initial encounter (principal); E07.9 Disorder of thyroid, unspecified; F17.210 Nicotine dependence, cigarettes, uncomplicated; Z88.8 Allergy status to other drugs, medicaments and biological substances; Z88.5 Allergy status to narcotic agent; Z90.49 Acquired absence of other specified parts of digestive tract; Z90.710 Acquired absence of both cervix and uterus; X58.XXXA Exposure to other specified factors, initial encounter; Y93.89 Activity, other specified; Y92.89 Other specified places as the place of occurrence of the external cause; Y99.8 Other external cause status

== ENCOUNTER 2025-03-18 07:19 | Emergency (ER) | payer MEDICARE ==
[~2025-03-18] VITALS: Ht 160 cm; Wt 65.8 kg
[~2025-03-18 07:19] MED LIST changes: +METHOCARBAMOL500 M1 PO; +NAPROXEN250 MG PO
[2025-03-18 07:22] VITALS: BP 129/79
[2025-03-18] MEDS ORDERED: Dexamethasone Sodium Phospha 20 MG/5 ML VIAL IV ONE (07:30)
[2025-03-18] MEDS ORDERED: Ondansetron Hydrochloride 4 MG/2 ML VIAL IV ONE (07:30)
[2025-03-18 08:14] LABS: BILIRUBIN Negative (Negative); BLOOD Negative (Negative); CLARITY Clear (Clear); COLOR Yellow (Yellow); KETONE Negative (Negative); LEUKO ESTERASE Negative (Negative); NITRITE Negative (Negative); PH 8.0 (4.5-8.0); SPECIFIC GRAVITY 1.010 (1.001-1.030); UROBILINOGEN 0.2 E.U./dl (0.0-1.0)
[2025-03-18 08:45] LABS: BACTERIA TRACE; EPITHELIAL CELLS 0-2; RBC 0-2 rbc/hpf (0-2)
[2025-03-18] MEDS ORDERED: PREDNISONE20 M1 PO (09:39)
[2025-03-18] MEDS ORDERED: PERCOCET 5-3251 EACH PO (09:39)
[2025-03-18] MEDS ORDERED: Ondansetron4 MG PO (09:39)
[2025-03-18] MEDS ORDERED: METHOCARBAMOL750 M1 PO (09:39)
== END 2025-03-18 09:43 | disposition home or self-care (01) ==
LOC: ED 07:19
PROVIDERS: Emergency Medicine
DX: M54.16 Radiculopathy, lumbar region (principal); E03.9 Hypothyroidism, unspecified; Z87.891 Personal history of nicotine dependence; Z90.49 Acquired absence of other specified parts of digestive tract; Z90.710 Acquired absence of both cervix and uterus; Z98.890 Other specified postprocedural states; Z88.5 Allergy status to narcotic agent; Z88.6 Allergy status to analgesic agent

== ENCOUNTER → 2025-04-02 | Outpatient (CLI) | payer MEDICARE ==
[~2025-04-02] MED LIST changes: +METHOCARBAMOL750 M1 PO; +Ondansetron4 MG PO; +PERCOCET 5-3251 EACH PO; +PREDNISONE20 M1 PO
[2025-04-02 13:42] LABS: BASO # 0.0 10*3/uL (0.0-0.1); BASO % 0.1 % (0.0-1.0); EOS # 0.0 10*3/uL (0.0-0.4); EOS % 0.0 % (1.0-4.0); MEAN CELL VOLUME 92.0 fl (81.0-99.0); MEAN CORPUSCULAR HGB 30.7 pg (27.0-31.0); MEAN PLATELET VOLUME 9.3 fl (9.6-12.3); MONO # 0.6 10*3/uL (0.1-1.0); MONO % 6.2 % (3.0-9.0); NEUT # 7.8 10*3/uL (2.3-7.9); NEUT % 77.4 % (47.0-73.0); NUCLEATED RED BLOOD CELL 0.0 % (0.0-0.0); NUCLEATED RED BLOOD CELL 0.0 10*3/uL (0.0-0.0); PLATELET COUNT AUTOMATED 228 10*3/uL (130-400); RED CELL DISTRI WIDTH 12.8 % (0-14.5)
[2025-04-02 13:50] LABS: BILIRUBIN Negative (Negative); BLOOD Negative (Negative); CLARITY Clear (Clear); COLOR Yellow (Yellow); KETONE Trace (Negative); LEUKO ESTERASE Negative (Negative); NITRITE Negative (Negative); PH 6.5 (4.5-8.0); SPECIFIC GRAVITY 1.025 (1.001-1.030); UROBILINOGEN 1.0 E.U./dl (0.0-1.0)
[2025-04-02 14:06] LABS: BACTERIA TRACE; EPITHELIAL CELLS 16-20; MUCOUS 3+; WBC 0-2 wbc/hpf (0-5)
[2025-04-02 14:14] LABS: BUN 14 mg/dl (9-23); LDL CHOLESTEROL 136 mg/dL (9-159); SGPT/ALT 13 U/L (5-49)
[2025-04-02 14:30] LABS: FREE T4 1.29 ng/dl (0.89-1.76)
== END | disposition home or self-care (01) ==
LOC: LAB 13:12
PROVIDERS: ATTEND Nurse Practitioner Primary Care
DX: I10 Essential (primary) hypertension (principal); R30.0 Dysuria; R73.09 Other abnormal glucose